=== PATIENT | female | born 1935 | race Caucasian/White ===

== ENCOUNTER 2021-11-30 17:53 | Emergency (ER) | payer MEDICARE, BC ==
[2021-11-30] MEDS ORDERED: Iopamidol 755 Mg/ML 100 ML Bottle IV ONE (17:59)
[2021-11-30] MEDS: hydrALAZINE 20 MG/ML SDV IVPUSH STA (18:57)
[2021-11-30 19:14] LABS: CARBON DIOXIDE,CO2 28.4 mmol/L (21.0-32.0); POTASSIUM,K 4.2 mmol/L (3.5-5.1)
[2021-11-30] MEDS: Amoxicillin/Clavulanate K 875-125 MG Tab PO ONE (21:53)
== END 2021-11-30 22:00 ==
LOC: MW.ED 17:53
DX: G45.9 Transient cerebral ischemic attack, unspecified (principal); J32.9 Chronic sinusitis, unspecified; H66.91 Otitis media, unspecified, right ear; I10 Essential (primary) hypertension; Z20.822 Contact with and (suspected) exposure to COVID-19; Z88.8 Allergy status to other drugs, medicaments and biological substances; Z88.2 Allergy status to sulfonamides; Z88.5 Allergy status to narcotic agent; Z79.899 Other long term (current) drug therapy; Z79.84 Long term (current) use of oral hypoglycemic drugs; Z90.49 Acquired absence of other specified parts of digestive tract
CPT/HCPCS: 36415; 70450; 70496; 70498; 71045; 80053; 81001; 83735; 84443; 84484; 85025; 85610; 96374; 99285; A9270; J0360; Q9967; U0002; 99284